=== PATIENT | male | born 1975 | race Caucasian/White ===

== ENCOUNTER 2018-01-14 00:31 | Emergency (ER) | payer OTHER ==
[~2018-01-14] VITALS: Ht 185.4 cm; Wt 134.7 kg
[2018-01-14 00:34] VITALS: Ht 185.4 cm; Wt 134.7 kg
[2018-01-14 02:57] VITALS: BP 139/91
== END 2018-01-14 02:57 | disposition home or self-care (01) ==
LOC: ED 00:31
DX: H10.9 Unspecified conjunctivitis (principal)
CPT/HCPCS: J1885

== ENCOUNTER 2020-10-01 15:36 | Emergency (ER) | payer OTHER ==
[~2020-10-01] VITALS: Ht 188 cm; Wt 134.3 kg
[2020-10-01 16:38] LABS: BASOPHIL % 0.5 % (0.2-1.5); PLATELET COUNT 229 x10^3mcL (152-348); RED CELL DISTRIBUTION WIDTH 13.2 % (12.1-16.2)
[2020-10-01 16:58] LABS: CALCIUM 9.2 mg/dL (8.5-10.1); CARBON DIOXIDE 25.1 mmol/L (21-32); CHLORIDE SERUM 102 mmol/L (98-107); CREATININE SERUM 0.9 mg/dL (0.7-1.3); GFR1 > 60 mL/min; GLUCOSE SERUM 119 mg/dL (74-106); POTASSIUM SERUM 3.7 mmol/L (3.5-5.1); SODIUM SERUM 139 mmol/L (136-145)
[2020-10-01 17:07] LABS: ALBUMIN 3.7 g/dL (3.4-5.0); ALKALINE PHOSPHATASE 77 U/L (46-116); ALT/SGPT 43 U/L (16-63); AST/SGOT 17 U/L (15-37); BILIRUBIN TOTAL 0.3 mg/dL (0.20-1.00); TOTAL PROTEIN, SERUM 7.4 g/dL (6.4-8.2)
[2020-10-01 20:21] VITALS: BP 129/70
== END 2020-10-01 20:21 | disposition home or self-care (01) ==
LOC: ED 15:36
PROVIDERS: Emergency Medicine
DX: R07.89 Other chest pain (principal); R09.89 Other specified symptoms and signs involving the circulatory and respiratory systems; I10 Essential (primary) hypertension; E11.9 Type 2 diabetes mellitus without complications